=== PATIENT | female | born 2005 | race Caucasian/White ===

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

== ENCOUNTER 2023-11-12 14:15 | Emergency (ER) | payer BC ==
[~2023-11-12] VITALS: Ht 160 cm; Wt 52.1 kg
[~2023-11-12 14:15] MED LIST changes: +DICY-61 PO; -DICY10CA13 PO
[2023-11-12 18:18] LABS: RSV AMPLIFICATION NEGATIVE (NEGATIVE)
[2023-11-12 18:54] VITALS: BP 116/79; TEMP 98.5; O2SAT 100
== END 2023-11-12 19:02 | disposition home or self-care (01) ==
LOC: M ED 14:15
DX: J06.9 Acute upper respiratory infection, unspecified (principal); F90.9 Attention-deficit hyperactivity disorder, unspecified type; Z11.52 Encounter for screening for COVID-19